=== PATIENT | male | born 1945 | race Caucasian/White ===

== ENCOUNTER 2022-10-25 07:49 | Observation (INO) | payer OTHER ==
[2022-10-25 10:56] LABS: ALT (SGPT) 18 U/L (8-55); AST (SGOT) 17 U/L (5-34); Albumin 4.4 g/dL (3.4-4.8); Alkaline Phosphatase 61 U/L (40-110); Anion Gap 13 mmol/L (10-20); BUN (Urea Nitrogen) 24 mg/dL (8.4-25.7); Bilirubin, Total 0.4 mg/dL (0.2-1.2); Calc. Creatinine Clearance 0 mL/min (70-130); Calcium 9.7 mg/dL (7.8-10.44); Carbon Dioxide 25 mmol/L (23-31); Chloride 105 mmol/L (98-107); Estimated GFR 56; Globulin 2.3 g/dL (2.4-3.5); Glucose 83 mg/dL (83-110); Potassium 4.8 mmol/L (3.5-5.1); Protein, Total 6.7 g/dL (5.8-8.1); Sodium 138 mmol/L (136-145)
[2022-10-25 11:01] LABS: #Basophils 0.1 thou/uL (0.0-0.2); #Eosinphils 0.5 thou/uL (0.0-0.7); #Monocytes 0.5 thou/uL (0.11-0.59); #Neutrophils 4.9 thou/uL (1.40-6.50); %Basophils 0.9 % (0.0-1.0); %Eosinophils 6.3 % (0.0-10.0); %Monocytes 6.4 % (0.0-10.0); Hematocrit 36.8 % (42.0-52.0); Hemoglobin 12.1 g/dL (14.0-18.0); Mean Corpuscular HGB CONC 32.9 g/dL (32.0-36.0); Mean Corpuscular Hemoglobin 31.1 pg (27.0-31.0); Mean Corpuscular Volume 94.6 fl (78.0-98.0); Mean Platelet Volume 10.3 fL (7.4-10.4); Platelet Count 128 10x3/uL (130-400); RBC Distribution Width 12.6 % (11.5-14.5); Red Blood Cell (RBC) Count 3.89 mill/uL (4.70-6.10); White Blood Cell (WBC) Count 7.8 10x3/uL (4.8-10.8)
[2022-10-25 11:05] LABS: PTT 29.7 sec (22.9-36.1)
[2022-10-25 16:00] VITALS: BMI 29.9
[2022-10-25] MEDS: Acetaminophen 325 MG TAB PO SCH ×3 (16:21→19:51)
[2022-10-26] MEDS: Acetaminophen 325 MG TAB PO SCH ×2 (04:41→09:18)
[2022-10-26] MEDS ORDERED: Dextrose 50% Abboject 50 ML SYRINGE SLOW IVP PRN (06:40)
[2022-10-26] MEDS ORDERED: Dextrose 5% in Water 1,000 ML IV PRN (06:40)
[2022-10-26] MEDS ORDERED: Loratadine 10 MG TAB PO PRN (06:40)
[2022-10-26] MEDS ORDERED: Glucagon 1 MG/ML KIT IM PRN (06:40)
[2022-10-26] MEDS ORDERED: Insulin Regular 300 UNITS/3 ML VIAL SC PRN (06:40)
[2022-10-26] MEDS ORDERED: Ferrous Gluconate 324 MG TAB PO SCH (08:00)
[2022-10-26] MEDS ORDERED: metFORMIN 500 MG TAB PO SCH (08:00)
[2022-10-26] MEDS ORDERED: Bacitracin 1 PK TOP SCH (09:00)
[2022-10-26] MEDS ORDERED: Sertraline 100 MG TAB PO SCH (09:00)
[2022-10-26] MEDS ORDERED: Bupropion 150 MG SR.TAB PO SCH (09:00)
[2022-10-26] MEDS ORDERED: Lisinopril 20 MG TAB PO SCH ×2 (09:00)
[2022-10-26] MEDS ORDERED: Tamsulosin HCl 0.4 MG CAP PO SCH (09:00)
[2022-10-26 12:16] VITALS: BP 156/79; TEMP 98
[2022-10-26] MEDS ORDERED: Atorvastatin Calcium 40 MG TAB PO SCH (21:00)
== END 2022-10-26 14:35 | disposition home or self-care (01) ==
LOC: ERS 07:49 → ERHOLD 11:03 → SURG B 15:15
PROVIDERS: ADMIT Surgery; ATTEND Surgery
DX: S06.5X0A Traumatic subdural hemorrhage without loss of consciousness, initial encounter (principal); S41.112A Laceration without foreign body of left upper arm, initial encounter; N17.9 Acute kidney failure, unspecified; E11.22 Type 2 diabetes mellitus with diabetic chronic kidney disease; N18.9 Chronic kidney disease, unspecified; I10 Essential (primary) hypertension; E78.5 Hyperlipidemia, unspecified; Z79.899 Other long term (current) drug therapy; Z79.4 Long term (current) use of insulin; Z79.84 Long term (current) use of oral hypoglycemic drugs; Z79.82 Long term (current) use of aspirin; W18.30XA Fall on same level, unspecified, initial encounter
CPT/HCPCS: 70450; 72125; 80053; 85025; 85610; 85730; 93005; G0378